=== PATIENT | male | born 1980 | race Caucasian/White ===

== ENCOUNTER 2016-07-30 16:11 | Emergency (ER) | payer OTHER ==
[2016-07-30 18:16] LABS: BILIRUBIN NEGATIVE (NEGATIVE); BLOOD NEGATIVE Ery/uL (NEGATIVE); CLARITY CLEAR (CLEAR); COLOR YELLOW (YELLOW); GLUCOSE (U) NORMAL (NORMAL); KETONE (U) NEGATIVE (NEGATIVE); LEUKOCYTES NEGATIVE Leu/uL (NEGATIVE); NITRITE NEGATIVE (NEGATIVE); PROTEIN NEGATIVE (NEGATIVE); SPECIFIC GRAVITY 1.015 (1.001-1.030)
== END 2016-07-30 18:45 | disposition home or self-care (01) ==
LOC: FER 16:11
PROVIDERS: Internal Medicine
DX: S01.111A Laceration without foreign body of right eyelid and periocular area, initial encounter (principal); S00.83XA Contusion of other part of head, initial encounter; S20.211A Contusion of right front wall of thorax, initial encounter; S40.011A Contusion of right shoulder, initial encounter; R10.9 Unspecified abdominal pain; M79.652 Pain in left thigh; M79.651 Pain in right thigh; M54.2 Cervicalgia; V84.5XXA Driver of special agricultural vehicle injured in nontraffic accident, initial encounter
CPT/HCPCS: 70450; 71020; 71100; 72125; 72170; 73030; 73552; 81003

== ENCOUNTER 2016-10-01 22:02 | Emergency (ER) | payer OTHER | END 2016-10-01 23:58 | disposition home or self-care (01) | LOC: FER 22:02 | DX: S31.142A Puncture wound of abdominal wall with foreign body, epigastric region without penetration into peritoneal cavity, initial encounter (principal); W22.8XXA Striking against or struck by other objects, initial encounter; Y93.89 Activity, other specified; Y92.009 Unspecified place in unspecified non-institutional (private) residence as the place of occurrence of the external cause | CPT/HCPCS: 74022 ==